=== PATIENT | female | born 1990 | race Two or more races ===

== ENCOUNTER 2020-08-25 17:10 | Inpatient (IN) | payer MEDICAID ==
[~2020-08-25] VITALS: Ht 157.5 cm; Wt 58.0 kg
[2020-08-25] MEDS ORDERED: LORazepam 2MG/ML-1ML VIAL IV ONE (17:45)
[2020-08-25 18:06] LABS: Albumin 4.7 g/dL (3.4-5.0); BUN/Creatinine Ratio 11.6; Calcium 9.7 mg/dL (8.5-10.1)
[2020-08-25 18:09] LABS: Bilirubin, Total 0.9 mg/dL (0.2-1.0); Total Protein 9.6 g/dL (6.4-8.2)
[2020-08-25 18:39] LABS: Potassium 2.7 mmol/L (3.5-5.1)
[2020-08-25] MEDS ORDERED: POTASSIUM CHL 20 Meq TABLET PO ONE ×2 (18:45)
[2020-08-25 19:15] LABS: Basophils # (auto) 0 10 ^3/uL (0-0.2); Basophils % (auto) 0.1 % (0.0-2.0); Eosinophils # (auto) 0 10 ^3/uL (0-0.8); Eosinophils % (auto) 0.3 % (0.0-7.0); Hematocrit 43.4 % (36.0-46.0); Hemoglobin 15.8 g/dL (12.2-16.2); Lymphocytes % (auto) 21.6 % (10.0-50.0); Mean Corpuscular Hemoglobin 31.7 pg (28.0-32.0); Mean Corpuscular Hgb Conc. 36.3 g/dL (32.0-36.0); Mean Corpuscular Volume 87.3 fL (80.0-100.0); Monocytes # (auto) 0.7 10 ^3/uL (0-1.3); Monocytes % (auto) 7.9 % (0.0-12.0); Neutrophils # (auto) 6.6 10 ^3/uL (1.6-8.6); Neutrophils % (auto) 70.1 % (37.0-80.0); Nucleated Red Blood Cells % 0.2 %; Platelet Count (auto) 373 10^3/uL (140-450); Red Blood Cells 4.97 10^6/uL (4.0-5.20); White Blood Cell 9.4 10^3/uL (4.4-10.8)
[2020-08-25] MEDS ORDERED: SODIUM CHLORIDE 0.9% 1,000 ML IVB ONE (19:45)
[2020-08-25 20:37] LABS: Magnesium 2.2 mg/dL (1.6-2.6)
[2020-08-25 21:29] LABS: Urine Bacteria FEW /hpf (None Seen); Urine Blood 1+ /uL (Negative); Urine Specific Gravity 1.012 (1.001-1.035); Urine WBC 13 /hpf (0 - 5)
[2020-08-25] MEDS ORDERED: ONDANSETRON HCL 4 MG/2 ML VIAL IV PRN (22:30)
[2020-08-25] MEDS ORDERED: cefTRIAXone 1GM/50ML D5W 50 ML IV ONE (22:45)
[2020-08-25] MEDS: SODIUM CHLORIDE 0.9% 1,000 ML IV SCH (23:04)
[2020-08-26] MEDS ORDERED: POTASSIUM CHL 20 Meq TABLET PO ONE
[2020-08-26] MEDS: POTASSIUM CHL 20MEQ/100ML 100 ML IV SCH ×5 (01:39→16:26)
[2020-08-26] MEDS: SODIUM CHLORIDE 0.9% 1,000 ML IV SCH ×3 (01:40→21:18)
[2020-08-26] MEDS ORDERED: POTA10TA51 PO (02:20)
[2020-08-26 05:00] VITALS: BP 93/62
[2020-08-26 08:48] LABS: Basophils # (auto) 0 10 ^3/uL (0-0.2); Basophils % (auto) 0.5 % (0.0-2.0); Eosinophils # (auto) 0.1 10 ^3/uL (0-0.8); Eosinophils % (auto) 1.9 % (0.0-7.0); Hematocrit 40.3 % (36.0-46.0); Hemoglobin 14.2 g/dL (12.2-16.2); Lymphocytes # (auto) 2.4 10 ^3/uL (0.4-5.4); Lymphocytes % (auto) 42.3 % (10.0-50.0); Mean Corpuscular Hemoglobin 30.9 pg (28.0-32.0); Mean Corpuscular Hgb Conc. 35.3 g/dL (32.0-36.0); Mean Corpuscular Volume 87.6 fL (80.0-100.0); Monocytes # (auto) 0.6 10 ^3/uL (0-1.3); Neutrophils # (auto) 2.5 10 ^3/uL (1.6-8.6); Neutrophils % (auto) 45.3 % (37.0-80.0); Nucleated Red Blood Cells % 0.3 %; Platelet Count (auto) 313 10^3/uL (140-450); Red Cell Distribution Width 12.7 % (11.8-14.3); White Blood Cell 5.6 10^3/uL (4.4-10.8)
[2020-08-26 09:00] VITALS: BP 95/63
[2020-08-26 09:00] LABS: Calcium 8.6 mg/dL (8.5-10.1)
[2020-08-26 09:02] LABS: BUN/Creatinine Ratio 19.4
[2020-08-26 09:05] LABS: Potassium 2.7 mmol/L (3.5-5.1)
[2020-08-26] MEDS ORDERED: CALC1TAB92 PO (09:08)
[2020-08-26] MEDS ORDERED: CYAN-17 PO (09:08)
[2020-08-26] MEDS: cefTRIAXone 1GM/50ML D5W 50 ML IV SCH (09:33)
[2020-08-26] MEDS ORDERED: POTASSIUM EFFERVESENT TAB 25 MEQ PO ONE (10:00)
[2020-08-26 13:00] VITALS: BP 96/56
[2020-08-26 17:00] VITALS: BP 94/60
[2020-08-26] MEDS: PANTOPRAZOLE 40 MG TAB PO SCH (17:20)
[2020-08-26 22:00] VITALS: BP 92/55
[2020-08-27 05:00] VITALS: BP 98/66
[2020-08-27] MEDS: SODIUM CHLORIDE 0.9% 1,000 ML IV SCH (05:08)
[2020-08-27 08:21] LABS: Calcium 8.2 mg/dL (8.5-10.1)
[2020-08-27 08:50] LABS: Potassium 2.6 mmol/L (3.5-5.1)
[2020-08-27 08:54] VITALS: BP 94/58
[2020-08-27] MEDS ORDERED: POTASSIUM CHLORIDE 40 MEQ, LIDOCAINE 1% (LOCAL ANESTH.) 4 ML in SODIUM CHL 0.9% 250 ML IV ONE (09:00)
[2020-08-27] MEDS ORDERED: POTASSIUM CHL 20 Meq TABLET PO ONE (09:00)
[2020-08-27] MEDS: PANTOPRAZOLE 40 MG TAB PO SCH (09:32)
[2020-08-27] MEDS: cefTRIAXone 1GM/50ML D5W 50 ML IV SCH (09:32)
== END 2020-08-27 14:30 | disposition home or self-care (01) | DRG 249 ==
LOC: ER 17:10 → TELE 22:18 → TELE-WESTW 23:42
PROVIDERS: ADMIT Hospitalist; ATTEND Hospitalist
DX: K52.9 Noninfective gastroenteritis and colitis, unspecified (principal); N17.9 Acute kidney failure, unspecified; E87.8 Other disorders of electrolyte and fluid balance, not elsewhere classified; E87.1 Hypo-osmolality and hyponatremia; E87.6 Hypokalemia; F41.9 Anxiety disorder, unspecified; Z20.822 Contact with and (suspected) exposure to COVID-19; F32.9 Major depressive disorder, single episode, unspecified; N39.0 Urinary tract infection, site not specified
CPT/HCPCS: 36415; 71045; 74176; 80048; 80053; 81001; 83690; 83735; 84132; 84702; 85025; 87086; 87088; 87186; 87426; 93005; 96361; 96365; 96375; G0378; J0696; J2001; J3480

== ENCOUNTER 2025-01-08 07:43 | Inpatient (IN) | payer MEDICAID ==
[~2025-01-08] VITALS: Ht 154.9 cm; Wt 51.2 kg
[~2025-01-08 07:43] MED LIST: POTA-36 PO
--- NOTE | 2025-01-08 08:42 | ED.PDOC ---
History of Present Illness HPI Comments A 34 YEAR OLD FEMALE PRESENTS TO THE ED WITH COMPLAINT OF ABNORMAL LAB RESULT. PATIENT STATES SHE HAD HER BLOOD DRAWN BY HER PRIMARY CARE PHYSICIAN 4 DAYS AGO AND WAS CALLED TODAY AND INFORMED THAT HER POTASSIUM WAS MEASURING 2.0 AND FOR HER TO GO TO THE ED FOR FURTHER EVALUATION AND POSSIBLE TREATMENT. PATIENT NOTES THAT SHE HAS A HISTORY OF HYPOKALEMIA SINCE SHE WAS YOUNGER AND HAS ALSO BEEN EXPERIENCING MUSCLE CRAMPS IN HER BILATERAL LOWER LEGS. PATIENT DENIES FEVER, CHILLS, SHORTNESS OF BREATH, CHEST PAIN, ABDOMINAL PAIN, NAUSEA, V OMITING, HEADACHE, OR OTHER COMPLAINTS. NO OTHER SYMPTOMS OR MODIFYING FACTORS AT THIS TIME. PATIENT IS ALERT, ORIENTED X 4, AND HAS STEADY GAIT. Chief Complaint: Abnormal LAB's Time Seen by MD: 07:50 Primary Care Provider: LINDSEY Reviewed Notes: Nurses Notes, Medications, Allergies Allergies: Coded Allergies: NO KNOWN ALLERGIES (Unverified , 03/16/19) Home Meds Reported Medications Potassium Chloride (POTASSIUM CHLORIDE CR) 10 Meq Tb, 20 MEQ PO DAILY, TAB 08/26/20 Information Source: Patient Mode of Arrival: Ambulatory Severity: Moderate Timing: Days Duration: Since onset, Days Prehospital treatment: None Medication Refill: For: Other (ABNORMAL LAB RESULT) Past Medical History PAST MEDICAL HISTORY: Anxiety, Depression Past Medical History (Other): HYPOKALEMIA Surgical History: Denies all surgeries DIE [employer] 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 STAMPING History: No 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 STAMPING History Family History Family History: Reviewed,noncontributory to illness Social History Smoker: Non-Smoker Alcohol: Denies ETOH Use Drugs: Denies Drug Use Lives In: Home Constitutional: denies: chills, diaphoresis, fatigue, fever, malaise, sweats, weakness, others EENTM: denies: blurred vision, double vision, ear bleeding, ear discharge, ear drainage, ear pain, ear ringing, eye pain, eye redness, hearing loss, mouth pain, mouth swelling, nasal discharge, nose bleeding, nose congestion, nose pain, photophobia, tearing, throat pain, throat swelling, voice changes, others Respiratory: denies: cough, hemoptysis, orthopnea, SOB at rest, shortness of breath, SOB with excertion, stridor, wheezing, others Cardiovascular: denies: chest pain, dizzy spells, diaphoresis, Dyspnea on exertion, edema, irregular heart beat, left arm pain, lightheadedness, palpitations, PND, syncope, others Gastrointestinal: denies: abdomen distended, abdominal pain, blood streaked bowels, constipated, diarrhea, dysphagia, difficulty swallowing, hematemesis, melena, nausea, poor appetite, poor fluid intake, rectal bleeding, rectal pain, vomiting, others Genitourinary: denies: abnormal vagina bleeding, burning, dyspareunia, dysuria, flank pain, frequency, hematuria, incontinence, pain, , vagina discharge, urgency, others Neurological: denies: dizziness, fainting, headache, left sided numbness, left sided weakness, numbness, paresthesia, pre-existing deficit, right sided numbness, right sided weakness, seizure, speech problems, tingling, tremors, we akness, others Musculoskeletal: reports: others (MUSCLE CRAMPS IN BILATERAL LOWER LEGS); denies: back pain, gout, joint pain, joint swelling, muscle pain, muscle stiffness, neck pain Integumetry: denies: bruises, change in color, change in hair/nails, dryness, laceration, lesions, lumps, rash, wounds, others Allergic/Immunocompromised: denies: Difficulty Healing, Frequent Infections, Hives, Itching, others Hematologic/Lymphatic: denies: anemia, blood clots, easy bleeding, easy bruising, swollen glands, others Endocrine: denies: excessive hunger, excessive sweating, excessive thirst, excessive urination, flushing, intolerance to cold, intolerance to heat, unexplained weight gain, unexplained weight loss, others Psychiatric: denies: anxiety, bipolar disorder, depression, hopeless, panic disorder, schizophrenia, sleepless, suicidal, others All Other Systems: Reviewed and Negative Physical Exam General Appearance: No Apparent Distress, Normal HEENT: Normal ENT Inspection, PERRL/EOMI, Pharynx Normal, TMs Normal Neck: Full Range of Motion, Non-Tender, Normal, Normal Inspection Respiratory: Chest Non-Tender, Lungs Clear, No Accessory Muscle Use, No Respiratory Distress, Normal Breath Sounds Cardiovascular: No Edema, No JVD, No Murmur, No Gallop, Normal Peripheral Pulses, Regular Rate/Rhythm Breast Exam: Deferred Gastrointestinal: No Organomegaly, Non Tender, No Pulsatile Mass, Normal Bowel Sounds, Soft Genitalia: Deferred Pelvic: Deferred Rectal: Deferred Extremities: No calf tenderness, Normal capillary refill, Normal inspection, Normal range of motion, Non-tender, No pedal edema, Other (REDNESS, SWELLING AND DVT SIGNS OF BOTH LOWER LEGS. ) Musculoskeletal : Apperance: Normal Neurologic: Alert, sanitarian aide II-XII nml as Tested, No Motor Deficits, Normal Affect, Normal Mood, No Sensory Deficits Cerebellar Function: Normal Reflexes: Normal Skin: Dry, Normal Color, Warm Peripheral Pulses: 2+ carotid (R), 2+ carotid (L), 2+ dorsalis pedis (R), 2+ dorsalis pedis (L) Lymphatic: No Adenopathy Was a procedure done? Was a procedure done?: No EKG EKG : Pulse Rate (adult): 76 Point Clear: Normal Cardiac Rhythm: NSR Block: None Hypertrophy: None ST: Normal Differential Dx Considerations may include: HYPOKALEMIA, ELECTROLYTE IMBALANCE, DEHYDRATION, WELL CHECK, UTI X-Ray, Labs, Meds, VS Vital Signs Date Time Temp Pulse Resp B/P (MAP) Pulse Ox O2 Delivery O2 Flow Rate FiO2 01/08/25 11:22 70 14 95 Room Air* 0 21 01/08/25 11:22 97.3 70 14 115/66 (82) 95 97.3 01/08/25 10:50 76 01/08/25 07:57 76 01/08/25 07:45 97.3 85 16 122/68 98 97.3 Lab Test 01/08/25 08:28 01/08/25 08:06 Range/Units White Blood Count 4.7 4.4-10.8 10^3/uL Red Blood Count 4.46 4.0-5.20 10^6/uL Hemoglobin 13.7 12.2-16.2 g/dL Hematocrit 38.2 36.0-46.0 % Mean Corpuscular Volume 85.7 80.0-100.0 fL Mean Corpuscular Hemoglobin 30.8 28.0-32.0 pg Mean Corpuscular Hemoglobin Concent 35.9 32.0-36.0 g/dL Red Cell Distribution Width 13.3 11.8-14.3 % Platelet Count 343 140-450 10^3/uL Mean Platelet Volume 7.8 6.9-10.8 fL Neutrophils (%) (Auto) 42.8 37.0-80.0 % Lymphocytes (%) (Auto) 46.9 10.0-50.0 % Monocytes (%) (Auto) 6.8 0.0-12.0 % Eosinophils (%) (Auto) 3.2 0.0-7.0 % Basophils (%) (Auto) 0.3 0.0-2.0 % Neutrophils # (Auto) 2.0 1.6-8.6 10 ^3/uL Lymphocytes # (Auto) 2.2 0.4-5.4 10 ^3/uL Monocytes # (Auto) 0.3 0-1.3 10 ^3/uL Eosinophils # (Auto) 0.2 0-0.8 10 ^3/uL Basophils # (Auto) 0 0-0.2 10 ^3/uL Nucleated Red Blood Cells 0.2 % Sodium Level 138 136-145 mmol/L Potassium Level 2.1 *L 3.5-5.1 mmol/L Chloride Level 88 L 98-107 mmol/L Carbon Dioxide Level 38 H 20-31 mmol/L Anion Gap 12 5-15 Blood Urea Nitrogen 12 9-23 mg/dL Creatinine 0.78 0.550-1.02 mg/dL Glomerular Filtration Rate Calc 101 >90 mL/min BUN/Creatinine Ratio 15.4 10.0-20.0 Serum Glucose 91 74-106 mg/dL Calcium Level 10.0 8.7-10.4 mg/dL Urine Color Yellow Yellow Urine Clarity Turbid H Clear Urine pH 8.0 5.0-9.0 Urine Specific [place] 1.024 1.001-1.035 Urine Protein 3+ H Negative Urine Ketones Negative Negative Urine Blood Negative Negative /uL Urine Nitrite Negative Negative Urine Bilirubin Negative Negative Urine Urobilinogen 4 H Negative mg/dL Urine Leukocyte Esterase Negative Negative /uL Urine RBC 19 0 - 4 /hpf Urine Microscopic WBC 3 0-5 /HPF Urine Squamous Epithelial Cells Mod <5 /hpf Urine Bacteria None seen None Seen /hpf Urine Glucose Normal Normal mg/dL Urine Test Negative Negative Current Medications Medications (Trade) Dose Ordered Sig/Ez Route Start Time Stop Time Status Last Admin Sodium Chloride 1,000 ml @ 1,000 mls/hr Q1H ONCE IV 01/08/25 11:15 01/08/25 12:14 DC 01/08/25 11:49 Potassium Bicarbonate (Klor-Con/Ef) 50 meq ONCE ONCE PO 01/08/25 11:15 01/08/25 11:16 DC 01/08/25 11:49 X-Ray, Labs, Meds, VS Comment EXTERNAL MEDICAL RECORDS REVIEWED: [NONE] INDEPENDENT HISTORIANS: [NONE] SOCIAL DETERMINANTS OF HEALTH: [NONE] LABS ORDERED: CBC, BMP, URINE REVIEWED AND INTERPRETED RESULTS: K 2.1, PROTEIN 3+, CO2 38 IMAGING ORDERED: NONE TREATMENTS ORDERED: NS 1 L IV, POTASSIUM 50 MEQ P.O., POTASSIUM 20 MEQ IV PROCEDURES PERFORMED: NONE CRITICAL CARE TIME: NONE I HAVE DISCUSSED THE PATIENT WITH THE ATTENDING PHYSICIAN DR. TAVARES AND HE AGREES WITH THE PATIENT'S PLAN OF CARE. UPON MY PHYSICAL EXAMINATION, THE PATIENT WAS WELL IN APPEARANCE AND SHOWED NO SIGNS OF RESPIRATORY DISTRESS. LABS WERE ORDERED FOR THE PATIENT WHICH REVEALED A POTASSIUM OF 2.1 SUGGESTING SEVERE HYPOKALEMIA. DUE TO THE PATIENT'S LAB RESULTS AND HISTORY OF CHRONIC HYPOKALEMIA, I HAVE DETERMINED THE PATIENT NEEDS TO BE ADMITTED FOR FURTHER TREATMENT AND EVALUATION. THE ON-CALL HOSPITALIST WILL BE CONTACTED FOR ADMISSION OF THIS PATIENT. Time of 1ST Reevaluation: 11:00 Reevaluation 1ST: Unchanged Patient Education/Counseling: Diagnosis, Treatment Family Education/Counseling: Diagnosis, Treatment SEPSIS Sepsis Screen Date sepsis recognized/suspect: Jan 08, 2025 Time Sepsis recognized/suspect: 0747 Recent Procedure: No Respiratory Rate >20: No Heart Rate >90: No Temp<36 C (96.8 F) or >38.3 C: No SBP <90 or MAP <65 mmHG: No New Acute Mental Status Change: No Is the patient on CPAP, BIPAP,: No Physician Orders Heplock Iv (01/08/25 ) Vital Signs Date Time Temp Pulse Resp B/P (MAP) Pulse Ox O2 Delivery O2 Flow Rate FiO2 01/08/25 11:22 70 14 95 Room Air* 0 21 01/08/25 11:22 97.3 70 14 115/66 (82) 95 97.3 01/08/25 10:50 76 01/08/25 07:57 76 01/08/25 07:45 97.3 85 16 122/68 98 97.3 Laboratory Tests Test 01/08/25 08:28 White Blood Count 4.7 10^3/uL (4.4-10.8) Medications Medications Dose Ordered Sig/Ez Route Start Time Stop Time Status Last Admin Dose Admin Potassium Bicarbonate 50 meq ONCE ONCE PO 01/08/25 11:15 01/08/25 11:16 DC 01/08/25 11:49 Sodium Chloride 1,000 ml @ 1,000 mls/hr Q1H ONCE IV 01/08/25 11:15 01/08/25 12:14 DC 01/08/25 11:49 Departure 1 Departure Time of Disposition: 11:00 Impression: Primary Impression: Acute hypokalemia Disposition: ADMITTED INPATIENT Condition: Serious Critical Care Note Critical Care Time?: No Stability Stability form required: No I personally scribed for JACI HUTCHINSON ([email or web address]) on 01/08/25 at 08:42. Electronically submitted by Alok Bowles (registracija vozila). I personally scribed for JACI HUTCHINSON ([email or web address]) on 01/08/25 at 10:50. Electronically submitted by Alok Bowles (registracija vozila). I personally scribed for JACI HUTCHINSON ([email or web address]) on 01/08/25 at 11:16. Electronically submitted by Alok Bowles (registracija vozila). JACI HUTCHINSON Jan 08, 2025 08:42
[2025-01-08 09:10] LABS: Urine Protein, UAD 3+ (Negative)
[2025-01-08 09:35] LABS: Hematocrit 38.2 % (36.0-46.0); Hemoglobin 13.7 g/dL (12.2-16.2); Mean Corpuscular Hemoglobin 30.8 pg (28.0-32.0); Mean Corpuscular Volume 85.7 fL (80.0-100.0); Nucleated Red Blood Cells % 0.2 %
--- NOTE | 2025-01-08 09:56 | ECG ---
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
[2025-01-08 11:00] LABS: Sodium 138 mmol/L (136-145)
[2025-01-08 11:01] LABS: Anion Gap 12 (5-15); Calcium 10.0 mg/dL (8.7-10.4)
[2025-01-08 11:02] LABS: Carbon Dioxide 38 mmol/L (20-31); Chloride 88 mmol/L (98-107)
[2025-01-08 11:05] LABS: Potassium 2.1 mmol/L (3.5-5.1)
[2025-01-08 11:06] LABS: BUN/Creatinine Ratio 15.4 (10.0-20.0); Blood Urea Nitrogen 12 mg/dL (9-23); Glucose 91 mg/dL (74-106)
[2025-01-08 11:22] VITALS: PULSE 70; RESP 14; O2SAT 95
[2025-01-08] MEDS: POTASSIUM EFFERVESENT TAB 25 MEQ PO ONE (11:49)
[2025-01-08] MEDS: SODIUM CHLORIDE 0.9% 1,000 ML IV ONE (11:49)
[2025-01-08] MEDS ORDERED: ONDANSETRON HCL 4 MG/2 ML VIAL IV PRN (13:00)
[2025-01-08] MEDS ORDERED: NITROGLYCERIN 0.4 MG SL TAB SL PRN (13:00)
[2025-01-08] MEDS ORDERED: MORPHINE SULFATE INJ 2 MG/ml SYRG IV PRN (13:00)
--- NOTE | 2025-01-08 15:17 | DVHHP2 ---
History of Present Illness Reason for Visit: Abnormal labs History of Present Illness 34-year-old female presents for evaluation of abnormal lab results. Patient reports having her blood drawn on Sunday of this week. Today she was contacted by her primary care provider's office and advised to present to the emergency department due to an abnormally low potassium level. She reports calf cramps and generalized weakness. Denies palpitations. No other acute complaints reported. Past Medical History Anxiety and hypokalemia Past Surgical History Denies Family History Noncontributory Smoke: No ALCOHOL: none Drugs: None Lives: with Family Review of Systems Review of Systems Review of systems are currently negative otherwise addressed in HPI. Allergies: Coded Allergies: NO KNOWN ALLERGIES (Unverified , 03/16/19) Medications Current Medications Medications Dose Ordered Sig/Ez Route Start Time Stop Time Status Last Admin Dose Admin Potassium Chloride 20 meq DAILY PO 01/09/25 10:00 UNV Ondansetron HCl 4 mg Q4HP PRN IV 01/08/25 13:00 UNV Nitroglycerin 0.4 mg Q5MINP PRN SL 01/08/25 13:00 UNV Morphine Sulfate 2 mg Q30M PRN IV 01/08/25 13:00 UNV Exam Vital Signs Vital Signs Date Time Temp Pulse Resp B/P (MAP) Pulse Ox O2 Delivery O2 Flow Rate FiO2 01/08/25 11:22 70 14 95 Room Air* 0 21 01/08/25 11:22 97.3 115/66 (82) 97.3 Exam Gen: 34-year-old female in no apparent distress. Skin: Warm, dry, normal color and texture, no rash. HEENT: Normocephalic atraumatic, mucous membranes moist and pink. Neck: Cervical and supraclavicular nodes normal without enlargement, trachea is midline, thyroid gland is normal without masses. Pulmonary: Clear to auscultation and percussion bilaterally. Cardiac: Regular rate and rhythm. No murmur Abdomen: Soft, nontender, nondistended, bowel sounds present all 4 quadrants, no guarding, no rigidity, no organomegaly. Extremities: No cyanosis, clubbing, no edema Neuro: Cranial nerves II through XII grossly intact, normal affect and speech, no focal motor deficits. Labs/Xrays Labs Test 01/08/25 08:28 01/08/25 08:06 Range/Units White Blood Count 4.7 4.4-10.8 10^3/uL Red Blood Count 4.46 4.0-5.20 10^6/uL Hemoglobin 13.7 12.2-16.2 g/dL Hematocrit 38.2 36.0-46.0 % Mean Corpuscular Volume 85.7 80.0-100.0 fL Mean Corpuscular Hemoglobin 30.8 28.0-32.0 pg Mean Corpuscular Hemoglobin Concent 35.9 32.0-36.0 g/dL Red Cell Distribution Width 13.3 11.8-14.3 % Platelet Count 343 140-450 10^3/uL Mean Platelet Volume 7.8 6.9-10.8 fL Neutrophils (%) (Auto) 42.8 37.0-80.0 % Lymphocytes (%) (Auto) 46.9 10.0-50.0 % Monocytes (%) (Auto) 6.8 0.0-12.0 % Eosinophils (%) (Auto) 3.2 0.0-7.0 % Basophils (%) (Auto) 0.3 0.0-2.0 % Neutrophils # (Auto) 2.0 1.6-8.6 10 ^3/uL Lymphocytes # (Auto) 2.2 0.4-5.4 10 ^3/uL Monocytes # (Auto) 0.3 0-1.3 10 ^3/uL Eosinophils # (Auto) 0.2 0-0.8 10 ^3/uL Basophils # (Auto) 0 0-0.2 10 ^3/uL Nucleated Red Blood Cells 0.2 % Sodium Level 138 136-145 mmol/L Potassium Level 2.1 *L 3.5-5.1 mmol/L Chloride Level 88 L 98-107 mmol/L Carbon Dioxide Level 38 H 20-31 mmol/L Anion Gap 12 5-15 Blood Urea Nitrogen 12 9-23 mg/dL Creatinine 0.78 0.550-1.02 mg/dL Glomerular Filtration Rate Calc 101 >90 mL/min BUN/Creatinine Ratio 15.4 10.0-20.0 Serum Glucose 91 74-106 mg/dL Calcium Level 10.0 8.7-10.4 mg/dL Urine Color Yellow Yellow Urine Clarity Turbid H Clear Urine pH 8.0 5.0-9.0 Urine Specific [place] 1.024 1.001-1.035 Urine Protein 3+ H Negative Urine Ketones Negative Negative Urine Blood Negative Negative /uL Urine Nitrite Negative Negative Urine Bilirubin Negative Negative Urine Urobilinogen 4 H Negative mg/dL Urine Leukocyte Esterase Negative Negative /uL Urine RBC 19 0 - 4 /hpf Urine Microscopic WBC 3 0-5 /HPF Urine Squamous Epithelial Cells Mod <5 /hpf Urine Bacteria None seen None Seen /hpf Urine Glucose Normal Normal mg/dL Urine Test Negative Negative SEPSIS Sepsis Screen Date sepsis recognized/suspect: Jan 08, 2025 Time Sepsis recognized/suspect: 1121 Recent Procedure: No On Antibiotic Therapy: No Respiratory Rate >20: No Heart Rate >90: No Temp<36 C (96.8 F) or >38.3 C: No SBP <90 or MAP <65 mmHG: No New Acute Mental Status Change: No Is the patient on CPAP, BIPAP,: No Physician Orders Heplock Iv (01/08/25 ) Potassium (01/08/25 16:00) Basic Metabolic Panel (01/09/25 04:00) Potassium Er Tablet (Klor-Con Tablet) (01/09/25 10:00) Admit (01/08/25 12:56) Ondansetron Hcl (Zofran) (01/08/25 13:00) Condition: Fair (01/08/25 12:56) Bedrest With Bathroom Privileg (01/08/25 12:56) Nitroglycerin Sublingual (Ntrostat Subli (01/08/25 13:00) Morphine Sulfate Injection (01/08/25 13:00) Stat Ekg For Chest Pain (01/08/25 12:56) Notify Md Of Changes From Base (01/08/25 12:56) Wash Plant Operator For 24 Hours (01/08/25 12:56) Emergency Dysrhythmia Protocol (01/08/25 12:56) Rhythm Strips Once Every Shift (01/08/25 12:56) Oxygen By Nasal Cannula (01/08/25 12:56) Vital Signs Date Time Temp Pulse Resp B/P (MAP) Pulse Ox O2 Delivery O2 Flow Rate FiO2 01/08/25 11:22 70 14 95 Room Air* 0 21 01/08/25 11:22 97.3 70 14 115/66 (82) 95 97.3 01/08/25 10:50 76 01/08/25 07:57 76 01/08/25 07:45 97.3 85 16 122/68 98 97.3 Laboratory Tests Test 01/08/25 08:28 White Blood Count 4.7 10^3/uL (4.4-10.8) Medications Medications Dose Ordered Sig/Ez Route Start Time Stop Time Status Last Admin Dose Admin Potassium Bicarbonate 50 meq ONCE ONCE PO 01/08/25 11:15 01/08/25 11:16 DC 01/08/25 11:49 50 MEQ Sodium Chloride 1,000 ml @ 1,000 mls/hr Q1H ONCE IV 01/08/25 11:15 01/08/25 12:14 DC 01/08/25 11:49 1,000 MLS/HR Assessment/Plan Assessment/Plan Assessment Symptomatic hypokalemia Plan Admit the patient to telemetry the hospitalist Replete potassium Resume home medications Continue treatment per orders. Plan discussed with: Patient My Orders Orders - DANI WHEAT Procedure Category Date Status Time Potassium LAB 01/08/25 Logged 16:00 Basic Metabolic Panel LAB 01/09/25 Verified 04:00 Potassium Er Tablet PHA 01/09/25 Logged (Klor-Con Tablet) 10:00 Admit ADMIT 01/08/25 Transmitted 12:56 Ondansetron Hcl PHA 01/08/25 Logged (Zofran) 13:00 Condition: Fair [facility] 01/08/25 In Process 12:56 Bedrest With Bathroom [facility] 01/08/25 In Process Privileg 12:56 Nitroglycerin PHA 01/08/25 Logged Sublingual (Ntrostat 13:00 Morphine Sulfate PHA 01/08/25 Logged Injection 13:00 Stat Ekg For Chest [facility] 01/08/25 In Process Pain 12:56 Notify Md Of Changes [facility] 01/08/25 In Process From Base 12:56 Wash Plant Operator For [place] 01/08/25 In Process 24 Hours 12:56 Emergency Dysrhythmia [facility] 01/08/25 In Process Protocol 12:56 Rhythm Strips Once [facility] 01/08/25 In Process Every Shift 12:56 Oxygen By Nasal RT 01/08/25 Transmitted Cannula 12:56 Date of Service: Jan 08, 2025 Billing Provider: DANI WHEAT Common Visit Codes: [id number] INP/OBS CARE (HIGH) DANI WHEAT [facility] Jan 08, 2025 15:17
[2025-01-08] MEDS: POTASSIUM CHL 20MEQ/100ML 100 ML IV ONE (16:44)
[2025-01-09] MEDS: POTASSIUM CHL 20MEQ/100ML 100 ML IV SCH (00:09)
[2025-01-09 01:52] VITALS: BP_SYST 93; BP_SYST 96; BP_DIAS 61; BP_DIAS 63; PULSE 67; PULSE 72; PULSE 75; RESP 15; RESP 16; RESP 17; TEMP 98.2; TEMP 98.3; O2SAT 96; O2SAT 97
[2025-01-09 01:53] VITALS: PULSE 85
[2025-01-09 05:00] VITALS: BP 93/56; PULSE 69; RESP 16; TEMP 97.8; O2SAT 98
[2025-01-09 07:07] LABS: Sodium 141 mmol/L (136-145)
[2025-01-09 07:08] LABS: Anion Gap 9 (5-15)
[2025-01-09 07:13] LABS: BUN/Creatinine Ratio 14.1 (10.0-20.0); Glucose 82 mg/dL (74-106)
[2025-01-09 07:21] LABS: Blood Urea Nitrogen 9 mg/dL (9-23)
[2025-01-09 07:36] LABS: Calcium 8.5 mg/dL (8.7-10.4); Carbon Dioxide 34 mmol/L (20-31); Chloride 98 mmol/L (98-107); Potassium 2.5 mmol/L (3.5-5.1)
[2025-01-09 08:00] VITALS: PULSE 65
[2025-01-09 09:00] VITALS: BP 94/61; PULSE 82; RESP 18; TEMP 98.3; O2SAT 96
[2025-01-09] MEDS: POTASSIUM CHL 20 Meq TABLET PO SCH (09:10)
--- NOTE | 2025-01-09 15:20 | DVHDS2 ---
Discharge Summary Date of Admission Jan 08, 2025 at 12:56 Date of Discharge: Jan 09, 2025 Admitting Diagnosis Abnormal labs results. Labs/Diagnostic Data: Laboratory Results Test 01/09/25 06:00 01/08/25 08:28 01/08/25 08:06 Sodium Level 141 mmol/L (136-145) Potassium Level 2.5 mmol/L (3.5-5.1) Chloride Level 98 mmol/L (98-107) Carbon Dioxide Level 34 mmol/L (20-31) Anion Gap 9 (5-15) Blood Urea Nitrogen 9 mg/dL (9-23) Creatinine 0.64 mg/dL (0.550-1.02) Glomerular Filtration Rate Calc 117 mL/min (>90) BUN/Creatinine Ratio 14.1 (10.0-20.0) Serum Glucose 82 mg/dL (74-106) Calcium Level 8.5 mg/dL (8.7-10.4) White Blood Count 4.7 10^3/uL (4.4-10.8) Red Blood Count 4.46 10^6/uL (4.0-5.20) Hemoglobin 13.7 g/dL (12.2-16.2) Hematocrit 38.2 % (36.0-46.0) Mean Corpuscular Volume 85.7 fL (80.0-100.0) Mean Corpuscular Hemoglobin 30.8 pg (28.0-32.0) Mean Corpuscular Hemoglobin Concent 35.9 g/dL (32.0-36.0) Red Cell Distribution Width 13.3 % (11.8-14.3) Platelet Count 343 10^3/uL (140-450) Mean Platelet Volume 7.8 fL (6.9-10.8) Neutrophils (%) (Auto) 42.8 % (37.0-80.0) Lymphocytes (%) (Auto) 46.9 % (10.0-50.0) Monocytes (%) (Auto) 6.8 % (0.0-12.0) Eosinophils (%) (Auto) 3.2 % (0.0-7.0) Basophils (%) (Auto) 0.3 % (0.0-2.0) Neutrophils # (Auto) 2.0 10 ^3/uL (1.6-8.6) Lymphocytes # (Auto) 2.2 10 ^3/uL (0.4-5.4) Monocytes # (Auto) 0.3 10 ^3/uL (0-1.3) Eosinophils # (Auto) 0.2 10 ^3/uL (0-0.8) Basophils # (Auto) 0 10 ^3/uL (0-0.2) Nucleated Red Blood Cells 0.2 % Urine Color Yellow (Yellow) Urine Clarity Turbid (Clear) Urine pH 8.0 (5.0-9.0) Urine Specific [place] 1.024 (1.001-1.035) Urine Protein 3+ (Negative) Urine Ketones Negative (Negative) Urine Blood Negative /uL (Negative) Urine Nitrite Negative (Negative) Urine Bilirubin Negative (Negative) Urine Urobilinogen 4 mg/dL (Negative) Urine Leukocyte Esterase Negative /uL (Negative) Urine RBC 19 /hpf (0 - 4) Urine Microscopic WBC 3 /HPF (0-5) Urine Squamous Epithelial Cells Mod /hpf (<5) Urine Bacteria None seen /hpf (None Seen) Urine Glucose Normal mg/dL (Normal) Urine Test Negative (Negative) Other Laboratory Tests 01/09/25 06:00 01/08/25 08:28 Brief Hx & Hospital Course: 34-year-old female with known history of hypokalemia, anxiety disorder presented to the hospital as she was sent by the PCP after she was found to have low potassium. Patient's potassium was replaced. Patient was admitted for presumed flushing. Patient was complaining of leg cramps as well. Patient left against medical advice before completion of workup and treatment. Condition at Discharge: Undetermined Final Diagnosis/Problems List 1.Symptomatic hypokalemia 2. Anxiety disorder Discharge Disposition: [facility] Discharge Will this Physician continue t: No Discharge Instruct/Medications Scheduled Potassium Chloride (Potassium Chloride Cr), 20 MEQ PO DAILY, (Reported) Discharge Statement: "Patient was advised to return to the ER or call 911 if any headaches, dizziness, shortness of breath, chest pain, abdominal pain, bleeding, fevers, or worsening of medical condition. Patient was counseled about treatment plan, medications, possible side effects, patientverbalized understanding. All questions were answered to the best of my ability. This discharge took greater then 30 minutes in planning, reviewing documentation, counseling the patient, and discussing with other team members." ASSESSMENT ASSESSMENT Assessment Date of Service: Jan 09, 2025 Billing Provider: ANGELA ROQUE MD Common Visit Codes: [id number] DISCH DAY >30min ANGELA ROQUE MD Jan 09, 2025 15:20
== END 2025-01-09 12:45 | disposition left against medical advice (07) | DRG 425 ==
LOC: ER 07:43 → OVERFLOW 12:56 → TELE-EAST 01-09 01:50
PROVIDERS: ADMIT Internal Medicine; ATTEND Internal Medicine
DX: E87.6 Hypokalemia (principal); F32.A Depression, unspecified; F41.9 Anxiety disorder, unspecified; Z53.29 Procedure and treatment not carried out because of patient's decision for other reasons
CPT/HCPCS: 36415; 80048; 81001; 81025; 84132; 85025; 93005; 96360; G0378; J3480